=== PATIENT | male | born 1950 | race Caucasian/White ===

== ENCOUNTER 2023-10-04 09:32 | Emergency (ER) | payer OTHER ==
[2023-10-04] MEDS ORDERED: LIDOCAINE 1% 20 ML MDV ONE (09:51)
[2023-10-04] MEDS ORDERED: TDAP (DIPHTH,PERTUSS(ACELL),TET VAC) 0.5 ML VIAL IMVAC ONE (09:51)
--- NOTE | 2023-10-04 11:10 | RAD REPORT ---
EXAM DESCRIPTION: RAD - Tib Fib Left - 10/04/2023 10:56 am CLINICAL HISTORY: laceration COMPARISON: No comparisons TECHNIQUE: Left tibia and fibula, 2 views. FINDINGS: No fracture is identified. There is no dislocation or periosteal reaction noted. Small calcaneal spur. Soft tissue irregularity along the lateral aspect of the lower leg superiorly. IMPRESSION: Soft tissue irregularity as above, without underlying acute osseous abnormality.
--- NOTE | 2023-10-04 11:40 | ER ---
Nurse's Notes [facility] Name: Marshall Rae Age: 73 yrs Sex: Male : 1950 Arrival Date: 10/04/2023 Time: 09:32 Bed 13 Private MD: Diagnosis: Laceration without foreign body of lower leg Presentation: 10/03 09:48 Chief complaint: Patient states: "I was cutting a tree, the chain saw kicked and I cut rs5 my left villa". Coronavirus screen: At this time, the client does not indicate any symptoms associated with coronavirus-19. Ebola Screen: No symptoms or risks identified at this time. 09:48 Method Of Arrival: Wheelchair rs5 09:50 Complicating Factors: There are no complicating factors for this patient. rs5 09:50 Initial Sepsis Screen: Does the patient meet any 2 criteria? No. Patient's initial rs5 sepsis screen is negative. Does the patient have a suspected source of infection? No. Patient's initial sepsis screen is negative. Risk Assessment: Do you want to hurt yourself or someone else? Patient reports no desire to harm self or others. Onset of symptoms was October 04, 2023. 09:50 Acuity: MARIN 3 rs5 Historical: - Allergies: 09:49 No Known Allergies; rs5 - PMHx: 09:49 Hypertensive disorder; Atrial fibrillation; rs5 - PSHx: 09:49 left foot surgery; rs5 - Immunization history:: Adult Immunizations up to date. - Infectious Disease History:: Denies. - Social history:: Smoking status: Patient denies any tobacco usage or history of. Screenin:[address] [facility] ED Fall Risk Assessment (Adult) History of falling in the last 3 months, rs5 including since admission No falls in past 3 months (0 pts) Confusion or Disorientation No (0 pts) Intoxicated or Sedated No (0 pts) Impaired Gait Yes (1 pt) Mobility Assist Device Used No (0 pt) Altered Elimination No (0 pt) Score/Fall Risk Level 0 - 2 = Low Risk Oriented to surroundings, Maintained a safe environment. Abuse screen: Denies threats or abuse. Nutritional screening: No deficits noted. Tuberculosis screening: No symptoms or risk factors identified. Assessment: 09:40 General: Appears in no apparent distress. uncomfortable, Behavior is calm, cooperative. rs5 Pain: Complains of pain in left villa Pain currently is 2 out of 10 on a pain scale. Quality of pain is described as aching, Is continuous. Neuro: Level of Consciousness is awake, alert, obeys commands, Oriented to person, place, time, situation. Cardiovascular: Patient's skin is warm and dry. Respiratory: Airway is patent Respiratory effort is even, unlabored, Respiratory pattern is regular, symmetrical. GI: Abdomen is round non-distended, Abd is soft and non tender X 4 quads. : No signs and/or symptoms were reported regarding the genitourinary system. EENT: No signs and/or symptoms were reported regarding the EENT system. Derm: Skin is intact, Skin is pink, warm \\T\\ dry. 4-5 inch laceration noted to left villa, no active bleeding noted. pt states "I cut my leg by accident with a chainsaw". 09:40 Musculoskeletal: Range of motion: limited in left leg. rs5 09:40 Injury Description: Laceration is clean, 2.6 to 7.5 cm long, not bleeding. rs5 10:49 Reassessment: Patient and/or family updated on plan of care and expected duration. Pain rs5 level reassessed. Patient is alert, oriented x 3, equal unlabored respirations, skin warm/dry/pink. 11:28 Reassessment: No changes from previously documented assessment. rs5 11:30 Reassessment: to bedside for wound care, pt tolerated wound care well. rs5 11:40 Reassessment: Patient and/or family updated on plan of care and expected duration. Pain rs5 level reassessed. Patient is alert, oriented x 3, equal unlabored respirations, skin warm/dry/pink. to bedside for dressing, Neosporin and non-adherent dressing applied to laceration on left leg, wrapped with sonia wrap, pt tolerated dressing well. 12:00 Reassessment: No changes from previously documented assessment. rs5 Vital Signs: 09:40 BP 141 / 82; Pulse 70; Resp 17; Pulse Ox 98% on R/A; rs5 12:00 BP 135 / 79; Pulse 72; Resp 17; Pulse Ox 98% on R/A; rs5 ED Course: 09:35 Patient arrived in ED. ra3 09:37 [facility] Pitt [facility] sb4 09:37 Angelique Cassidy MD is Attending Physician. sb4 09:40 Patient has correct armband on for positive identification. Placed in gown. Bed in low rs5 position. Call light in reach. Side rails up X2. 09:45 Arm band placed on Patient placed in an exam room, on a stretcher. ll1 09:48 Michi Ventura, RN is Primary Nurse. rs5 09:50 Julius Seals DO is Attending Physician. sb4 10:57 Tib Fib Left XRAY In Process Unspecified. EDMS 11:24 Triage completed. rs5 11:28 No provider procedures requiring assistance completed. rs5 12:00 Patient did not have IV access during this emergency room visit. rs5 Administered Medications: 10:05 Drug: Boostrix Tdap IM 0.5 ml IM once; as a single dose Route: IM; Site: left deltoid; rs5 10:25 Follow up: Response: No adverse reaction rs5 11:51 Drug: Lidocaine Infiltration (1 %) 20 ml 20 ml Infiltration once; to bedside Volume: 20 sb4 ml; Route: Infiltration; 12:00 Follow up: Response: No adverse reaction rs5 Outcome: 11:40 Discharge ordered by MD. sb4 12:00 Discharged to home ambulatory, rs5 12:00 Condition: stable rs5 12:00 Discharge instructions given to patient, family, Instructed on discharge instructions, follow up and referral plans. medication usage, Demonstrated understanding of instructions, follow-up care, medications, Prescriptions given X 1, 12:06 Patient left the ED. rs5 Signatures: Dispatcher [employer] EDMS Michael Alvarado, RN RN ll1 Shea Pitt PA-C [place] sb4 Michi Ventura, RN RN rs5 Fozia Hill ra3
--- NOTE | 2023-10-04 11:40 | EDPHYS ---
Physician Documentation [facility] Name: Marshall Rae Age: 73 yrs Sex: Male : 1950 Arrival Date: 10/04/2023 Time: 09:32 Bed 13 Private MD: ED Physician Julius Seals HPI: 10/03 09:46 This 73 yrs old Male presents to ER via Unassigned with complaints of Laceration To Leg.sb4 09:46 The patient has a laceration related to: doing yard work, chain saw, occurred outdoors, sb4 and there are no complicating factors. The injury was accidental. The laceration(s) is(are) located on the left villa. Onset: The symptoms/episode began/occurred just prior to arrival. Associated signs and symptoms: The patient has no apparent associated signs or symptoms. The patient has not experienced similar symptoms in the past. The patient has not recently seen a physician. Historical: - Allergies: 09:49 No Known Allergies; rs5 - PMHx: 09:49 Hypertensive disorder; Atrial fibrillation; rs5 - PSHx: 09:49 left foot surgery; rs5 - Immunization history:: Adult Immunizations up to date. - Infectious Disease History:: Denies. - Social history:: Smoking status: Patient denies any tobacco usage or history of. ROS: 09:46 Constitutional: Negative for fever, chills, and weight loss, sb4 09:46 Skin: Positive for laceration(s), of the left villa, 09:46 All other systems are negative, Exam: 09:46 Constitutional: This is a well developed, well nourished patient who is awake, alert, sb4 and in no acute distress. Head/Face: Normocephalic, atraumatic. Eyes: Extra-ocular motions intact. Periorbital areas with no swelling, redness, or edema. 09:46 Skin: injury, laceration(s), the wound is approximately 15 cm(s), with a depth of 1 cm(s), of the left villa, that can be described as contaminated, no foreign body, irregular, with mild bleeding, Vital Signs: 09:40 BP 141 / 82; Pulse 70; Resp 17; Pulse Ox 98% on R/A; rs5 12:00 BP 135 / 79; Pulse 72; Resp 17; Pulse Ox 98% on R/A; rs5 Laceration: 11:38 Wound Repair of 15cm ( 5.9in ) subcutaneous laceration to left villa. Irregularly sb4 shaped.. Skin/tissue flap noted.. Minimal bleeding noted.. Distal neuro/vascular/tendon intact. Anesthesia: Local anesthetic administered with 15 mls of 1% lidocaine. Wound prep: Wound irrigation with saline by me, Wound explored, Copious irrigation. Skin closed with 11 4-0 Prolene using simple sutures and sterile technique. Skin closed with 12 padma Concord using staple gun. Dressed with non-adherent dressing. Patient tolerated well. MDM: 09:37 Patient medically screened. sb4 11:38 Data reviewed: vital signs, nurses notes, and as a result, I will discharge patient. sb4 Counseling: I had a detailed discussion with the patient and/or guardian regarding the historical points, exam findings, and any diagnostic results supporting the discharge/admit diagnosis, radiology results, the need for outpatient follow up, for suture and staple removal in 10 days, to return to the emergency department if symptoms worsen or persist or if there are any questions or concerns that arise at home. 10/03 09:46 Order name: Tib Fib Left XRAY; Complete Time: 11:38 sb4 10/03 09:46 Order name: Wound Care; Complete Time: 10:06 sb4 10/03 11:38 Order name: Wound dressing; Complete Time: 12:14 sb4 Administered Medications: 10:05 Drug: Boostrix Tdap IM 0.5 ml IM once; as a single dose Route: IM; Site: left deltoid; rs5 10:25 Follow up: Response: No adverse reaction rs5 11:51 Drug: Lidocaine Infiltration (1 %) 20 ml 20 ml Infiltration once; to bedside Volume: 20 sb4 ml; Route: Infiltration; 12:00 Follow up: Response: No adverse reaction rs5 Disposition: 10:59 I reviewed the patient's care provided by Advanced Practice Provider \T\ agree w/ the ms3 diagnosis \T\ care plan. I personally saw the pt \T\ performed a substantive portion of the visit, incldng all aspects of the (History/Exam/Medical Decision Making). PA/DIVER HELPER's history reviewed, patient interviewed, and examined. HPI: 73-year-old male presents to the emergency department for left leg laceration status post chainsaw mishap. Patient states that she was shifting when he went to get out of the way cutting himself with his chainsaw My personal exam of patient reveals: On exam patient with laceration to left lateral leg into the adipose tissue with muscle fascia visible. Patient is alert and oriented x 4, no apparent distress, nontoxic-appearing. Heart rate and rhythm are regular without murmurs rubs or gallops, lungs are clear to auscultation bilaterally I agree with assessment and care plan and confirm the diagnosis (es) above. Disposition Summary: 10/04/23 11:40 Discharge Ordered Notes: Location: Home sb4 Problem: new sb4 Symptoms: have improved sb4 Condition: Stable sb4 Diagnosis - Laceration without foreign body of lower leg sb4 Followup: sb4 - With: Private Physician - When: 7 - 10 days - Reason: Staple/Suture removal Discharge Instructions: - Discharge Summary Sheet sb4 - Sutures, Concord, or Adhesive Wound Closure, [id number] sb4 Forms: - Antibiotic Education sb4 - Patient Portal Instructions sb4 - Leadership Thank You Letter sb4 Prescriptions: - Cephalexin 500 mg Oral Capsule - take 1 capsule ORAL route every 8 hours for 10 days; 30 capsule; Refills: 0, sb4 Product Selection Permitted Signatures: Dispatcher [employer] Michael Cee, RN RN ll1 Julius Seals DO DO ms3 Shea Pitt PA-C PA-C sb4 Michi Ventura RN RN rs5
[2023-10-04 12:17] VITALS: BP 141/82; O2SAT 98
--- OUTSIDE RECORDS SUMMARY | 2023-10-05 13:46 | XMS REPORT | Continuity of Care Document ---
Author Name Unknown Address [address] [facility] [place] [address] [facility] Address [address] [facility] [address] [place] [address] Care Team Providers Care Shingle Carrier Name Role Phone DANIEL CORNELIUS Attending Clinician Unavailable Olegario Butler Attending Clinician UnavailGERSON Monroe Attending Clinician Unavail able LAB90 Attending Clinician Unavailable Leroy ABURTO, Gabriela Bell Attending Clinician [phone] [id number] Attending Clinician Unavailable Daniel Cornelius MD Attending Clinician [phone] Olegario Butler Admitting Clinician Unavailabl e KNOW, DOES_NOT Admitting Clinician Unavailable Payers Payer Name Policy Type Policy Number Effective Date Expirati on Date Source BRAYAN SHEN PPO 5 [id number] 2021 00:00:00 Problems Condition Name Condition Details Condition Category Status Onset Date Resolution Date Last Treatment Date Treating Clinician Comments Source Essential hypertensi on Essential hypertensi on Disease Active 10-22 00:00: 00 Overview: Formattin g of this note might be different from the original. On sonia-I and low salt dietLast Assessmen t & Plan: Formattin g of this note might be different from the original. Iza Garcia Elevated PSA Elevated PSA Disease Active 10-22 00:00: 00 Ana Garcia History of corneal ulcer History of corneal ulcer Disease Active 10-22 00:00: 00 Ana Garcia Allergies, Adverse Reactions, Alerts Allergy Name Allergy Type Status Severity Reaction(s) Onset Date Inactive Date Treating Clinician Comments Source No Known Allergie s DA Active U 6-12 00:00: 00 [facility] Social History Social Habit Start Date Stop Date Quantity Comments Source Exposure to SARS-CoV-2 (event) Not sure Ana gutierrez Sex Ass[birth year] At [birth year] 00[birth year] Ana Garcia Smoking Status Start Date Stop Date Source Never smoked tobacco Ana Garcia Medications Ordered Medication Name Filled Medication Name Start Date Stop Date Current Medication? Ordering Clinician Indication Dosage Frequency Signature (SIG) Comments Components Source Lisinopril 10 MG oral Tablet 10-22 00:00: 00 Yes [id number] 10mg Take 1 tablet (10 mg total) by mouth daily Ana Garcia Lisinopril 10 MG oral Tablet 06-13 00:00: 00 10-22 00:00 :00 No 10mg Take 1 tablet (10 mg total) by mouth daily Ana Garcia Vital Signs Vital Name Observation Time Observation Value Comments S nancy Systolic blood pressure 2020-10-22 12:57:00 124 mm[Hg] Ana Garcia Diastolic blood pressure 2020-10-22 12:57:00 68 mm[Hg] Ana wilson Heart rate 2020-10-22 12:57:00 74 /min Tmi Garcia Body temperature 2020-10-22 12:57:00 36.67 Monique Ana Garcia Respiratory rate 2020-10-22 12:57:00 16 /min Ana Garcia Body height 2020-10-22 12:57:00 182.9 cm Luann Garcia Body weight 2020-10-22 12:57:00 81.738 kg Luann Garcia BMI 2020-10-22 12:57:00 24.44 kg/m2 Luann Garcia Procedures Procedure Date / Time Performed Performing Clinicia n Source URINALYSIS, ROUTINE 2020-10-22 15:14:00 Aga, Daniel Garcia CBC WITH DIFFERENTIAL/PLATELET 2020-10-22 13:47:00 Aga, Daniel Garcia MAGNESIUM, SERUM 2020-10-22 13:47:00 Aga, Daniel Garcia LIPID PANEL 2020-10-22 13:47:00 Aga, Daniel Garcia BASIC METABOLIC PANEL (8) 2020-10-22 13:47:00 Aga, Demarco Garcia ECG- ADULT 2020-10-22 13:27:46 Aga, Daniel Garcia Encounters Start Date/Time End Date/Time Encounter Type Admission Type Attending [facility] Care Facility Care Department Encounter ID Source 2022-09-12 00:00:00 2022-09-12 00:00:00 Outpatient ADRYANDEMARCODANIELSUKH CYR [id number] Ana Garcia 2022-07-28 11:51:00 2022-07-29 11:36:00 Inpatient Olegario Landon [facility]ACL INTE [id number] [facility] 2022-07-27 08:45:00 2022-07-27 08:45:00 Outpatient Olegario Landon HCAWU SURG [id number] [facility] 2021-12-29 00:00:00 2021-12-29 00:00:00 Outpatient GERSON SINGH [id number] Ana Garcia 2021-09-18 09:45:00 2021-09-18 09:45:00 Outpatient LAB90 ANA CYR [id number] Ana ybjamil 2021-09-18 08:45:00 2021-09-18 09:30:00 Office Visit Gabriela Harper [place] [id number] Ana brenda 2020-12-09 14:15:00 2020-12-09 14:15:00 Outpatient TRED45 ANA CYR [id number] Ana Garcia 2020-12-09 13:00:00 2020-12-09 13:00:00 Outpatient ANA CYR [id number] Ana Garcia 2020-10-29 00:00:00 2020-10-29 00:00:00 Outpatient DANIEL CORNELIUS [id number] Ana Garcia 2020-10-22 08:45:00 2020-10-22 08:45:00 Outpatient LAB90 ANA CYR [id number] Ana Garcia 2020-10-22 07:57:06 2020-10-22 08:12:06 Office Visit Daniel Cornelius [id number] Ana Garcia 2020-10-22 00:00:00 2020-10-22 00:00:00 Outpatient DANIEL CORNELIUS [id number] Ana Garcia Results Test Description Test Time Test Comments Results Result Co mments Source RBC [id number] 04:38:00* Test Item Value Reference Range Interpretation Comme nts ANISOCYTOSIS (test code = ANISO) POIKILOCYTOSIS (test code = POIK) 2+ BASIC METABOLIC [id number] 04:12:00* Test Item Value Reference Range Interpretation Comme nts SODIUM (test code = NA) 138 mEq/L 134-147 N POTASSIUM (test code = K) 4.7 mEq/L 3.4-5.0 N CHLORIDE (test code = CL) 111 mEq/L 100-108 H CARBON DIOXIDE (test code = CO2) 23 mEq/l 21-33 N ANION GAP (test code = GAP) 9 0-20 N GLUCOSE (test code = GLU) 142 mg/dL 70-110 H BLOOD UREA NITROGEN (test code = BUN) 13 mg/dL 7-18 N GLOMERULAR FILTRATION RATE (test code = GFR) 72.2 70-80 N The Glomerular Filtration Rate is a calculated parameterbased on serum Creatinine, patient age and sex. GFR valuesless than 60 mL/min/1.73 square meters are indicative ofChronic Kidney Disease. Values less than 15 mL/min/1.73square meters indicate Kidney failure. The calculation forGFR is based on the CKD-EPI (202) calculation. This formulais race indifferent and is the recommended formula for GFRby the National Kidney Foundation for Adults.The GFR will not calculate if the sex is unknown or if thepatient's age is <18 years. CREATININE (test code = CREAT) 1.1 mg/dL 0.6-1.3 N CALCIUM (test code = CA) 8.5 mg/dL 8.0-10.5 N [id number] 04:12:00* Test Item Value Reference Range Interpretation Comme nts PHOSPHOROUS (test code = PHOS) 3.5 MG/DL 2.5-4.9 N [id number] 04:12:00* Test Item Value Reference Range Interpretation Comme nts MAGNESIUM (test code = MAG) 2.12 mg/dL 1.80-2.40 CALCIUM [id number] 04:12:00* Test Item Value Reference Range Interpretation Comme nts CALCIUM IONIZED (test code = ANKUR) 1.13 MMOL/L 1.09-1.30 N BASIC METABOLIC [id number] 21:31:00* Test Item Value Reference Range Interpretation Comme nts SODIUM (test code = NA) 139 mEq/L 134-147 N POTASSIUM (test code = K) 4.3 mEq/L 3.4-5.0 N CHLORIDE (test code = CL) 112 mEq/L 100-108 H CARBON DIOXIDE (test code = CO2) 19 mEq/l 21-33 L ANION GAP (test code = GAP) 13 0-20 N GLUCOSE (test code = GLU) 163 mg/dL 70-110 H BLOOD UREA NITROGEN (test code = BUN) 12 mg/dL 7-18 N GLOMERULAR FILTRATION RATE (test code = GFR) 65.1 70-80 L The Glomerular Filtration Rate is a calculated parameterbased on serum Creatinine, patient age and sex. GFR valuesless than 60 mL/min/1.73 square meters are indicative ofChronic Kidney Disease. Values less than 15 mL/min/1.73square meters indicate Kidney failure. The calculation forGFR is based on the CKD-EPI (2021) calculation. This formulais race indifferent and is the recommended formula for GFRby the National Kidney Foundation for Adults.The GFR will not calculate if the sex is unknown or if thepatient's age is <18 years. CREATININE (test code = CREAT) 1.2 mg/dL 0.6-1.3 N CALCIUM (test code = CA) 8.1 mg/dL 8.0-10.5 N [id number] 21:31:00* Test Item Value Reference Range Interpretation Comme nts MAGNESIUM (test code = MAG) 1.65 mg/dL 1.80-2.40 L CALCIUM [id number] 21:31:00* Test Item Value Reference Range Interpretation Comme nts CALCIUM IONIZED (test code = ANKUR) 1.09 MMOL/L 1.09-1.30 N CBC W/AUTO [id number] 21:17:00* Test Item Value Reference Range Interpretation Comme nts WHITE BLOOD CELL (test code = WBC) 16.8 x10 3/uL 4.5-11.0 H RED BLOOD CELL (test code = RBC) 5.81 x10 6/uL 4.00-5.60 H HEMOGLOBIN (test code = HGB) 17.7 g/dL 12.5-16.9 H HEMATOCRIT (test code = HCT) 50.7 % 37.5-50.7 N MEAN CELL VOLUME (test code = MCV) 87.3 fL 81.0-99.0 N MEAN CELL HGB (test code = MCH) 30.5 pg 27.0-33.0 N MEAN CELL HGB CONCETRATION (test code = MCHC) 34.9 g/dL 33.0-37.0 N RED CELL DISTRIBUTION WIDTH CV (test code = RDW) 13.2 % 11.5-14.5 N RED CELL DISTRIBUTION WIDTH SD (test code = RDW-SD) 42.3 fL 37.0-54.0 N PLATELET COUNT (test code = PLT) 204 x10 3/uL 150-400 N MEAN PLATELET VOLUME (test code = MPV) 10.1 fL 7.0-9.0 H NEUTROPHIL % (test code = NT%) 87.9 % 56.0-77.0 H IMMATURE GRANULOCYTE % (test code = IG%) 0.2 % 0.0-2.0 N LYMPHOCYTE % (test code = LY%) 8.0 % 14.0-32.0 L MONOCYTE % (test code = MO%) 3.7 % 4.8-9.0 L EOSINOPHIL % (test code = EO%) 0.0 % 0.3-3.7 L BASOPHIL % (test code = BA%) 0.2 % 0.0-2.0 N NUCLEATED RBC % (test code = NRBC%) 0.0 % 0-0 N NEUTROPHIL # (test code = NT#) 14.79 x10 3/uL 2.0-7.6 H IMMATURE GRANULOCYTE # (test code = IG#) 0.04 x10 3/uL 0.00-0.03 H LYMPHOCYTE # (test code = LY#) 1.34 x10 3/uL 1.0-3.8 N MONOCYTE # (test code = MO#) 0.63 x10 3/uL 0.1-0.8 N EOSINOPHIL # (test code = EO#) 0.00 x10 3/uL 0.0-0.2 N BASOPHIL # (test code = BA#) 0.03 x10 3/uL 0.0-0.2 N NUCLEATED RBC # (test code = NRBC#) 0.00 x10 3/uL 0.0-0.1 N MANUAL DIFF REQUIRED (test code = MDIFF) NO [id number] 17:06:00* Test Item Value Reference Range Interpretation Comme nts ACT-ISTAT (test code = ACTI) 293 SEC 74-137 H Performed by cer tified welding machine operator gas metal arc at [facility] [id number] 16:47:00* Test Item Value Reference Range Interpretation Comme nts ACT-ISTAT (test code = ACTI) 293 SEC 74-137 H Performed by cer tified welding machine operator gas metal arc at [facility] [id number] 16:25:00* Test Item Value Reference Range Interpretation Comme nts ACT-ISTAT (test code = ACTI) 311 SEC 74-137 H Performed by cer tified welding machine operator gas metal arc at [facility] [id number] 16:01:00* Test Item Value Reference Range Interpretation Comme nts ACT-ISTAT (test code = ACTI) 323 SEC 74-137 H Performed by cer tified welding machine operator gas metal arc at [facility] [id number] 15:40:00* Test Item Value Reference Range Interpretation Comme nts ACT-ISTAT (test code = ACTI) 342 SEC 74-137 H Performed by cer tified welding machine operator gas metal arc at [facility] [id number] 15:13:00* Test Item Value Reference Range Interpretation Comme nts ACT-ISTAT (test code = ACTI) 209 SEC 74-137 H Performed by cer tified welding machine operator gas metal arc at [facility] BASIC METABOLIC [id number] 10:55:00* Test Item Value Reference Range Interpretation Comme nts SODIUM (test code = NA) 136 MMOL/L 137-145 L POTASSIUM (test code = K) 4.4 MMOL/L 3.5-5.1 N CHLORIDE (test code = CL) 105 MMOL/L 98-107 N CARBON DIOXIDE (test code = CO2) 23 MMOL/L 22-30 N GLUCOSE (test code = GLU) 99 MG/DL 74-106 N BLOOD UREA NITROGEN (test code = BUN) 17 MG/DL 9-20 N GLOMERULAR FILTRATION RATE (test code = GFR) > 60 The Glomerular Filtration Rate is a calculated parameterbased on serum Creatinine, patient age and sex. GFR valuesless than 60 mL/min/1.73 square meters are indicative ofChronic Kidney Disease. Values less than 15 mL/min/1.73square meters indicate Kidney failure. The calculation forGFR is based on the CKD-EPI (2020) calculation. This formulais race indifferent and is the recommended formula for GFRby the National Kidney Foundation for Adults.The GFR will not calculate if the sex is unknown or if thepatient's age is <18 years. CREATININE (test code = CREAT) 1.00 MG/DL 0.66-1.25 N CALCIUM (test code = CA) 9.5 MG/DL 8.4-10.2 N [id number] 10:55:00* Test Item Value Reference Range Interpretation Comme [facility] MAGNESIUM (test code = MAG) 2.1 MG/DL 1.6-2.3 N PROTHROMBIN [id number] 10:49:00* Test Item Value Reference Range Interpretation Comme [facility] PROTHROMBIN TIME PATIENT (test code = PTP) 11.3 SECONDS 10.1-12.6 N INTERNATIONAL NORMAL RATIO (test code = INR) 1.0 0.86-1.14 N The INR is to be used only for monitoring oral anticoagulanttherap y. INDICATION INR VALUE -------1. Prophylaxis, deep venous thrombosis, including high risk surgery. 2.0 - 3.0 2. Prophylaxis, deep venous thrombosis, hip surgery, treatment for deep venous thrombosis or pulmonary prevention of systemic embolism in patients with valvular heart disease, atrial fibrillation, tissue heart valve, or acute myocardial infarction. 2.0 - 3.0 3. Mechanical prosthesis heart valves, recurrent systemic embolism. 3.0 - 4.5 PTT [id number] 10:49:00* Test Item Value Reference Range Interpretation Comme nts PTT ACTIVATED (test code = APTT) 34.9 SECONDS 27.2-37.9 N CBC W/AUTO [id number] 10:40:00* Test Item Value Reference Range Interpretation Comme nts WHITE BLOOD CELL (test code = WBC) 8.5 K/MM3 3.8-9.8 N RED BLOOD CELL (test code = RBC) 6.03 M/MM3 3.95-5.67 H HEMOGLOBIN (test code = HGB) 18.6 G/DL 12.4-16.7 CALLED TO LENI Langley & READBACK ON 07/27/22 AT 1037 BY Shree Ortiz HEMATOCRIT (test code = HCT) 51.5 % 35.9-49.5 H MEAN CELL VOLUME (test code = MCV) 85 fL 81.7-96.1 N MEAN CELL HGB (test code = MCH) 30.8 pg 27.6-33.2 N MEAN CELL HGB CONCETRATION (test code = MCHC) 36.1 % 32.9-35.5 H RED CELL DISTRIBUTION WIDTH (test code = RDW) 13.2 % 12.1-15.2 N PLATELET COUNT (test code = PLT) 197 K/MM3 129-368 N MEAN PLATELET VOLUME (test code = MPV) 9.6 fl 7.4-10.4 N NEUTROPHIL % (test code = NT%) 63.1 % 43-75 N IMMATURE GRANULOCYTE % (test code = IG%) 0.2 % 0.0-2.0 N LYMPHOCYTE % (test code = LY%) 27.0 % 14-44 N MONOCYTE % (test code = MO%) 8.0 % 4-13 N EOSINOPHIL % (test code = EO%) 1.2 % 0-6 N BASOPHIL % (test code = BA%) 0.5 % 0-2 N NUCLEATED RBC % (test code = NRBC%) 0.0 % 0-1.0 N NEUTROPHIL # (test code = NT#) 5.33 K/mm3 2.0-7.6 N IMMATURE GRANULOCYTE # (test code = IG#) 0.02 x10 3/uL 0-0.03 N LYMPHOCYTE # (test code = LY#) 2.28 K/mm3 1.0-3.8 N MONOCYTE # (test code = MO#) 0.68 K/mm3 0.1-0.8 N EOSINOPHIL # (test code = EO#) 0.10 K/mm3 0.0-0.2 N BASOPHIL # (test code = BA#) 0.04 K/mm3 0.0-0.2 N NUCLEATED RBC # (test code = NRBC#) 0.00 K/mm3 0.0-0.1 N LIPID [id number] 15:11:00* Test Item Value Reference Range Interpretation Comme nts CHOLESTEROL, TOTAL (test code = 2093-3) 254 mg/dL 100-199 H TRIGLYCERIDES (test code = 2571-8) 139 mg/dL 0-149 HDL CHOLESTEROL (test code = 2085-9) 70 mg/dL >39 VLDL CHOLESTEROL BERTO (test code = 78801-0) 25 mg/dL 5-40 LDL CHOL CALC (NIH) (test code = 28261-8) 159 mg/dL 0-99 H PAULIE (test code = PAULIE) [facility] results reported in Eastern Time. [facility] Clinical Information:[facility] Source of Specimen:Blood, venous*Venipunc Lab Interpretation (test code = 29580-8) Abnormal Ana SeyboldCBC WITH DIFFERENTIAL/[id number] 15:11:00* Test Item Value Reference Range Interpretation Comme nts WHITE BLOOD CELL (WBC) COUNT (test code = 6690-2) See_Comment [Automated message] The system which generated this result transmitted reference range: 3.4 - 10.8 x10E3/uL. The reference range was not used to interpret this result as normal/abnormal. RED BLOOD CELL (RBC) COUNT (test code = 789-8) See_Comment [Automated message] The system which generated this result transmitted reference range: 4.14 - 5.80 x10E6/uL. The reference range was not used to interpret this result as normal/abnormal. HEMOGLOBIN (test code = 718-7) 17.3 g/dL 13.0-17.7 HEMATOCRIT (test code = 4544-3) 53.5 % 37.5-51.0 H MCV (test code = 787-2) 93 fL 79-97 MCH (test code = 785-6) 30.2 pg 26.6-33.0 MCHC (test code = 786-4) 32.3 g/dL 31.5-35.7 RDW (test code = 788-0) 13.0 % 11.6-15.4 PLATELETS (test code = 777-3) See_Comment [Automated message] The system which generated this result transmitted reference range: 150 - 450 x10E3/uL. The reference range was not used to interpret this result as normal/abnormal. NEUTROPHILS (test code = 770-8) 62 % Not Estab. LYMPHS (test code = 736-9) 27 % Not Estab. MONOCYTES (test code = 5905-5) 9 % Not Estab. EOS (test code = 713-8) 1 % Not Estab. BASOS (test code = 706-2) 1 % Not Estab. NEUTROPHILS (ABSOLUTE) (test code = 751-8) See_Comment [Automated message] The system which generated this result transmitted reference range: 1.4 - 7.0 x10E3/uL. The reference range was not used to interpret this result as normal/abnormal. LYMPHS (ABSOLUTE) (test code = 731-0) See_Comment [Automated message] The system which generated this result transmitted reference range: 0.7 - 3.1 x10E3/uL. The reference range was not used to interpret this result as normal/abnormal. MONOCYTES(ABSOLUTE) (test code = 742-7) See_Comment [Automated message] The system which generated this result transmitted reference range: 0.1 - 0.9 x10E3/uL. The reference range was not used to interpret this result as normal/abnormal. EOS (ABSOLUTE) (test code = 711-2) See_Comment [Automated message] The system which generated this result transmitted reference range: 0.0 - 0.4 x10E3/uL. The reference range was not used to interpret this result as normal/abnormal. BASO (ABSOLUTE) (test code = 704-7) See_Comment [Automated message] The system which generated this result transmitted reference range: 0.0 - 0.2 x10E3/uL. The reference range was not used to interpret this result as normal/abnormal. IMMATURE GRANULOCYTES (test code = 12116-5) 0 % Not Estab. IMMATURE GRANS (ABS) (test code = 21449-6) See_Comment [Automated message] The system which generated this result transmitted reference range: 0.0 - 0.1 x10E3/uL. The reference range was not used to interpret this result as normal/abnormal. PAULIE (test code = PAULIE) [facility] results reported in Eastern Time. [facility] Clinical Information:SRC :Blood, venous*Venipunc ture ? [facility] Source of Specimen:Blood, venous*Venipunc Lab Interpretation (test code = 71936-1) Abnormal [facility] METABOLIC PANEL (8)2020-10-23 14:11:00* Test Item Value Reference Range Interpretation Comme nts GLUCOSE, SERUM (test code = 2345-7) 101 mg/dL 65-99 H BUN (test code = 3094-0) 19 mg/dL 8-27 CREATININE, SERUM (test code = 2160-0) 0.89 mg/dL 0.76-1.27 EGFR IF NONAFRICN AM (test code = 57863-2) 87 mL/min/1.73 >59 EGFR IF AFRICN AM (test code = 46413-2) 101 mL/min/1.73 >59 [facility] currently reports eGFR in compliance with the current ?recommendations of the National Kidney Foundation. [facility] will ?update reporting as new guidelines are published from the NKF-ASN ?Task force. BUN/CREATININE RATIO (test code = 3097-3) 10-24 SODIUM, SERUM (test code = 2951-2) 142 mmol/L 134-144 POTASSIUM, SERUM (test code = 2823-3) 5.0 mmol/L 3.5-5.2 CHLORIDE, SERUM (test code = 2075-0) 104 mmol/L 96-106 CARBON DIOXIDE, TOTAL (test code = 2027-) 21 mmol/L 20-29 CALCIUM, SERUM (test code = 07811-3) 9.8 mg/dL 8.6-10.2 PAULIE (test code = PAULIE) [facility] results reported in Eastern Time. [facility] Clinical Information:SRC :Blood, venous*Venipunc ture ? [facility] Source of Specimen:Blood, venous*Venipunc Lab Interpretation (test code = 63952-3) Abnormal Ana SeyboldMAGNESIUM, [id number] 14:11:00* Test Item Value Reference Range Interpretation Comme nts MAGNESIUM, SERUM (test code = 95120-2) 2.1 mg/dL 1.6-2.3 PAULIE (test code = PAULIE) [facility] results re ported in Eastern Time. [facility] Clinical Information:[facility] Source of Specimen:Blood, venous*Venipunc Ana BearoldURINALYSIS, [id number] 13:14:00* Test Item Value Reference Range Interpretation Comme nts SPECIFIC GRAVITY (test code = 2965-2) 1.005-1.030 PH (test code = 5803-2) 5.0-7.5 URINE-COLOR (test code = 5778-6) Yellow Yellow APPEARANCE (test code = 5767-9) Clear Clear WBC ESTERASE (test code = 5799-2) Negative Negative PROTEIN (test code = 27573-5) Negative Negative/Trace GLUCOSE (test code = 2349-9) Negative Negative KETONES (test code = 2514-8) Negative Negative OCCULT BLOOD (test code = 5794-3) Negative Negative BILIRUBIN (test code = 5770-3) Negative Negative UROBILINOGEN,SEMI-Q N (test code = 95814-0) 0.2 mg/dL 0.2-1.0 NITRITE, URINE (test code = 5802-4) Negative Negative MICROSCOPIC EXAMINATION (test code = 36782-8) Microscopic not indicated and not performed. PAULIE (test code = PAULIE) [facility] results reported in Eastern Time. [facility] Clinical Information:SRC: Urine*Urine ?LCA Source of Specimen:Urine*U rine Ana BearoldECG- [id number] 18:08:31* Test Item Value Reference Range Interpretation Comme nts VENTRICULAR RATE (test code = 43804) BPM ATRIAL RATE (test code = 50332) BPM P-R INTERVAL (test code = 12552) 174 ms QRS DURATION (test code = 19386) 92 ms Q-T INTERVAL (test code = 93514) 432 ms QTC CALCULATION(BEZE (test code = 00506) 442 ms CALCULATED P AXIS (test code = 57629) degrees CALCULATED R AXIS (test code = 41624) degrees CALCULATED T AXIS (test code = 17608) degrees DIAGNOSIS (test code = 25678) Normal sinus rhythmNormal ECGNo previous ECGs availableConfirmed by LEONEL FONTANEZ ([id number]) on 10/22/2020 1:08:29 PM Ana Garcia Notes Date/Time Note Provider Source 2022-07-29 19:14:00 [id number] [place] [address] PATIENT NAME: JAE GUERRIER ADMIT DATE: 07/28/22 ACCOUNT NO: [id number] ROOM NO: [id number] AGE: 71 REPORT TYPE: OPERATIVE REPORT SEX: M ADMITTING PHYSICIAN:Olegario Butler MD ATTENDING PHYSICIAN:Olegario Butler MD OPERATION DATE: 07/28/2022 PROCEDURES: 1. Comprehensive electrophysiology study with atrial fibrillation ablation/pulmonary vein isolation. 2. Intracardiac echocardiography. PREOPERATIVE DIAGNOSIS: Persistent atrial fibrillation. POSTOPERATIVE DIAGNOSIS: Persistent atrial fibrillation. SURGEON: Olegario Butler MD ANESTHESIA: General endotracheal anesthesia. FRONTLOAD DRIVER: None. PROCEDURE IN DETAIL: After informed consent was obtained explaining to the patient risks, benefits and alternatives, the patient was brought to the cardiac catheterization lab in the fasting postabsorptive state. He was prepped and draped in sterile fashion. Local anesthesia was applied over both femoral veins with 1% lidocaine. Using modified Seldinger technique and ultrasound guidance as well as a micropuncture kit, a standard 8-Niuean sheath was placed in the right femoral vein. Two 8-Niuean sheaths and a 23 9-Niuean sheaths were placed in the left femoral vein. Sheaths were aspirated and flushed and connected to heparinized saline infusion. Prior to the final placement of the 8-Niuean sheath in the right femoral vein, 2 Perclose sutures were placed in a preclosed fashion. An intracardiac echocardiography catheter was advanced via the 9-Niuean sheath and placed in the right atrium. Intracardiac echocardiography was performed to map the left atrium and interatrial septum. A 5-Niuean quadripolar Cournand catheter was advanced via an 8-Niuean sheath and placed in the right ventricle. A decapolar catheter was advanced via the remaining 8-Niuean sheath and placed in the coronary sinus. A VersaCross wire was advanced through the 8-Niuean sheath in the right atrium. The 8-Niuean sheath was exchanged for the VersaCross sheath, which was manipulated into the posterior septal region on the posterior septal fossa. After appropriate placement, RF energy was applied to the wire and a transseptal puncture was performed. The wire was advanced into the left atrium. The sheath was advanced to cross the septum and was removed. Progressive dilatation of the right femoral venous access site was performed with short 12-Niuean and 14-Niuean dilator. The Kid[employer]mittronic FlexCath sheath was then prepped and advanced over the wire into the left atrium. The dilator and wire were removed. The sheath was aspirated and flushed and connected to heparinized saline infusion. An Lefty PATIENT NAME: JAE GUERRIER catheter was then prepped and advanced through the Medtronic sheath in the left atrium. A 3-dimensional map was created of the left atrium and veins. The Octaray catheter was removed and the balloon was prepped. After adequate heparinization, the balloon was advanced over the wire. The Achieve wire was placed into the veins sequentially. After appropriate placement of the wire, sequential isolation of the pulmonary vein was performed starting with the left superior, attempted isolation on the left inferior, then isolation of the right inferior and right superior pulmonary veins. The left inferior pulmonary vein could not be completely isolated due to proximity to the esophagus and a rapid decrease in the esophageal temperature probe. At the end of the procedure, the patient was cardioverted. A sinus rhythm was restored, transiently and prior to the final freeze the patient was cardioverted and reverted back to atrial fibrillation. The patient was started on amiodarone drip and after the final cryotherapy was applied, another cardioversion was performed, which resulted in a sinus rhythm. A post-procedure map revealed isolation of the right superior, right inferior, and left superior pulmonary veins. [TIME: 06:02] inferior pulmonary vein was not isolated. The patient tolerated the procedure well with no complications. ABLATION DATA: Left superior pulmonary vein; Freeze #1: -41 degrees C. Time to effect -51 degrees C at 79 seconds, temperature nica -54 degrees C. Freeze duration 180 seconds, esophageal temperature nica 34.5 degrees C. Left superior pulmonary vein, temperature at 30 seconds, -38 degrees C. Time to effect -51 degrees C. at 101 seconds, temperature nica -53 degrees C freeze duration 180 seconds, and esophageal temperature nica 33.6 degrees C. Freeze #3: -31 degrees at 30 seconds, temperature nica -41 degrees C, freeze duration 180 seconds, esophageal temperature nica 33.1 degrees C. Left inferior pulmonary vein, freeze #1 -33 degrees C at 30 seconds, temperature nica -39 degrees C. freeze duration 86 seconds. Esophageal temperature nica less than 30, greater than 25 degrees C. Freeze #2: Temperature 30 seconds -32 degrees C, temperature nica -37 degrees C, freeze duration 136 seconds, and esophageal temperature nica less than 30 degrees C and greater than 25 degrees C. Freeze #3: Temperature at 30 seconds-30 degrees C. temperature nica -41 degrees C, freeze duration 66 second, and esophageal temperature nica 26.7 degrees C. Right inferior pulmonary vein, -37 degrees at 30 seconds. Temperature nica -55 degrees centigrade. Freeze duration 180 seconds, esophageal temperature nica 34.6 degrees C. Time to zero 14 seconds. Right superior pulmonary vein, -38 degrees 30 seconds, time to effect -42 degrees C at 36 seconds, temperature nica -55 degrees C, freeze duration 180 seconds, esophageal temperature nica at 34.7 degrees C and time to zero 12 seconds. CONCLUSION: 1. Successful isolation of right superior, right inferior, and left superior pulmonary veins. 2. Unable to isolate left inferior pulmonary vein secondary to esophageal proximity and temperature. PATIENT NAME: JAE GUERRIER ESTIMATED BLOOD LOSS: 15 mL. COMPLICATIONS: No complications. Dictated By: Olegario Butler MD Date Dictated: 07/29/2022 19:14:15 Date Transcribed: 07/29/2022 20:14:43 GSP/SVR Receipt ID: [id number] Authenticated by Olegario Butler MD On 07/30/2022 06:55:11 PM at 0655 PATIENT NAME: JAE GUERRIER [facility] 2022-07-29 09:57:00 [facility] ([facility]) Discharge Summary REPORT#:[id number] REPORT STATUS: Signed DATE:07/29/22 TIME: 09 PATIENT: JAE GUERRIER UNIT #: [id number] ROOM/BED: 2201 : 51 AGE: 71 SEX: M ATTEND: Olegario Butler MD ADM AUTHOR: Mohan Pascal * ALL edits or amendments must be made on the electronic/computer document * PCP PCP Discharge to: home General Information Discharge date: 07/29/22 Discharge diagnosis: AFIB Hospital course: -s/p PVI ablation per -tele, Afib, controlled, 80s-90s -monitored overnight -hemodynamically stable -B groin soft; no hematoma -resume AC xarelto -d/c home; outpt f/u, , 2 weeks Med Rec PCP PCP: PCP: Olegario Butler MD Med Rec Discharge meds: Continue taking these medications: LISINOPRIL (ZESTRIL) 20 MG TAB 20 MILLIGRAM ORAL DAILY. RIVAROXABAN (XARELTO) 20 MG TAB 20 MILLIGRAM ORAL DAILY. SOTALOL (BETAPACE) 80 MG TAB 80 MILLIGRAM ORAL TWICE DAILY. Objective VS/I O Last Documented: Result Date Time Pulse Ox 95 07/29 0600 B/P 121/59 07/29 0600 B/P Mean 84 07/29 0600 Pulse 77 07/29 0600 Resp 17 07/29 0600 O2 Delivery Room air 07/29 0400 Temp 36.9 07/29 0400 24 hour I O ending at 0700: 07/29 0700 07/28 1900 Intake Total 430.00 Output Total 825 Balance -395.00 Intake, IV 430.00 Output, Emesis Output, Urine 825 Patient 85.8 kg 81.818 kg Weight Weight Bed scale Stated/Reported Measurement Method PATIENT WEIGHT: Weight (lb): 189 Weight (oz): 2.51 Weight (kg): 85.800 General appearance: alert, awake, oriented Cardiovascular: irregular rhythm Respiratory: clear to auscultation, no distress GI: soft, non-tender Extremities: moves all Neuro/PANEL MACHINE TENDER: alert, oriented X 3 Skin: dry Wound/incision: Location: B groin soft; no hematoma Results Findings/Data: Laboratory Tests: 07/29 07/28 07/28 07/28 07/28 0333 2104 1656 1641 1619 Chemistry Sodium (134 - 147 mEq/L) 138 139 Potassium (3.4 - 5.0 mEq/L) 4.7 4.3 Chloride (100 - 108 mEq/L) 111 H 112 H Carbon Dioxide (21 - 33 mEq/l) 23 19 L Anion Gap (0 - 20) 9 13 BUN (7 - 18 mg/dL) 13 12 Creatinine (0.6 - 1.3 mg/dL) 1.1 1.2 Glomerular Filtr Rate (70 - 80) 72.2 65.1 L Glucose (70 - 110 mg/dL) 142 H 163 H Calcium (8.0 - 10.5 mg/dL) 8.5 8.1 Ionized Calcium Fili (1.09 - 1.30 1.13 1.09 MMOL/L) Phosphorus (2.5 - 4.9 MG/DL) 3.5 Magnesium (1.80 - 2.40 mg/dL) 2.12 1.65 L Coagulation Activated Coag Time (74 - 137 SEC) 293 H 293 H 311 H Hematology WBC (4.5 - 11.0 x10 3/uL) 11.8 H 16.8 H RBC (4.00 - 5.60 x10 6/uL) 5.30 5.81 H Hgb (12.5 - 16.9 g/dL) 16.7 17.7 H Hct (37.5 - 50.7 %) 46.0 50.7 MCV (81.0 - 99.0 fL) 86.8 87.3 MCH (27.0 - 33.0 pg) 31.5 30.5 MCHC (33.0 - 37.0 g/dL) 36.3 34.9 RDW (11.5 - 14.5 %) 13.1 13.2 Plt Count (150 - 400 x10 3/uL) 186 204 MPV (7.0 - 9.0 fL) 9.9 H 10.1 H Neut % (Auto) (56.0 - 77.0 %) 81.1 H 87.9 H Lymph % (Auto) (14.0 - 32.0 %) 10.2 L 8.0 L [place] % (Auto) (4.8 - 9.0 %) 8.2 3.7 L Eos % (Auto) (0.3 - 3.7 %) 0.0 L 0.0 L Baso % (Auto) (0.0 - 2.0 %) 0.1 0.2 Neut # (Auto) (2.0 - 7.6 x10 3/uL) 9.59 H 14.79 H Lymph # (Auto) (1.0 - 3.8 x10 3/uL) 1.21 1.34 [place] # (Auto) (0.1 - 0.8 x10 3/uL) 0.97 H 0.63 Eos # (Auto) (0.0 - 0.2 x10 3/uL) 0.00 0.00 Baso # (Auto) (0.0 - 0.2 x10 3/uL) 0.01 0.03 Abs Immat Gran (auto) (0.00 - 0.03 0.05 H 0.04 H x10 3/uL) Add Manual Diff NO NO Immature Gran % (0.0 - 2.0 %) 0.4 0.2 Nucleated RBC % (0 - 0 %) 0.0 0.0 Nucleated RBCs # (Man) (0.0 - 0.1 0.00 0.00 x10 3/uL) Poikilocytosis 2+ 07/28 07/28 07/28 1556 1534 1509 Coagulation Activated Coag Time (74 - 137 SEC) 323 H 342 H 209 H Treatments Procedures Treatments Procedures: PVI ablation Lab: Chemistry last 24 hrs: 07/29 07/28 4633 2104 Chemistry Sodium (134 - 147 mEq/L) 138 139 Potassium (3.4 - 5.0 mEq/L) 4.7 4.3 Chloride (100 - 108 mEq/L) 111 H 112 H BUN (7 - 18 mg/dL) 13 12 Creatinine (0.6 - 1.3 mg/dL) 1.1 1.2 Glucose (70 - 110 mg/dL) 142 H 163 H Hematology last 24 hrs: 07/29 07/28 0333 2104 Hematology WBC (4.5 - 11.0 x10 3/uL) 11.8 H 16.8 H Hgb (12.5 - 16.9 g/dL) 16.7 17.7 H Hct (37.5 - 50.7 %) 46.0 50.7 Plt Count (150 - 400 x10 3/uL) 186 204 Neut % (Auto) (56.0 - 77.0 %) 81.1 H 87.9 H Discharge Instructions PCP PCP: PCP: Olegario Butler MD )( Discharge to: Home/Self Care Discharge Instructions Additional Discharge Routines: Attending Follow-Up )( Diet: Cardiac )( Activity: As Tolerated Follow-up Appointments Attending Physician: Attending Physician: Olegario Butler MD Attending physician follow up timeframe: In 1-2 weeks at 1003 at 1444 RPT #:[id number] [facility] 2022-07-29 04:09:00 [id number] [place] [address] PATIENT NAME: JAE GUERRIER ADMIT DATE: 07/28/22 ACCOUNT NO: [id number] [place] [facility]GE: 71 REPORT TYPE: eELECTROCARDIOGRAM REPORT SEX: M ADMITTING PHYSICIAN:Olegaroi Butler MD ATTENDING PHYSICIAN:Olegario Butler MD Order: [id number] Test Reason : rhythm change Test Date/Time Stamp: WedJul 29 2022 04:09:34 Blood Pressure : / mmHG Vent. Rate : 068 BPM Atrial Rate : 000 BPM P-R Int : 000 ms QRS Dur : 102 ms QT Int : 398 ms P-R-T Axes : 000 -06 -75 degrees QTc Int : 423 ms Atrial fibrillation Nonspecific T wave abnormality Abnormal ECG When compared with ECG of 28-JUL-2022 20:58, Vent. rate has decreased BY [address] no longer depressed in Anterolateral leads Confirmed by DEVIN MALDONADO ([id number]) on 07/29/2022 5:40:13 PM Referred By: Olegario Butler Confirmed by:DEVIN MALDONADO at 1740 PATIENT NAME: JAE GUERRIER [facility] 2022-07-29 04:09:00 [id number] [place] [address] PATIENT NAME: JAE GUERRIER ADMIT DATE: 07/28/22 ACCOUNT NO: [id number] [place] [facility] [place]GE: 71 REPORT TYPE: eELECTROCARDIOGRAM REPORT SEX: M ADMITTING PHYSICIAN:Olegario Butler MD ATTENDING PHYSICIAN:Olegario Butler MD Order: [id number] Test Reason : rhythm change Test Date/Time Stamp: WedJul 29 2022 04:09:34 Blood Pressure : / mmHG Vent. Rate : 068 BPM Atrial Rate : 000 BPM P-R Int : 000 ms QRS Dur : 102 ms QT Int : 398 ms P-R-T Axes : 000 -06 -75 degrees QTc Int : 423 ms Atrial fibrillation Nonspecific T wave abnormality Abnormal ECG When compared with ECG of 28-JUL-2022 20:58, Vent. rate has decreased BY [address] no longer depressed in Anterolateral leads Confirmed by DEVIN MALDONADO ([id number]) on 08/01/2022 8:41:01 AM Referred By: Olegario Butler Confirmed by:DEVIN MALDONADO at 0841 PATIENT NAME: JEA GUERRIER [facility] 2022-07-28 21:11:00 [facility] ([facility]) Critical Care Consult Note REPORT#:[id number] REPORT STATUS: Signed DATE:07/28/22 TIME: 2110 PATIENT: JAE GUERRIER UNIT #: [id number] ROOM/BED: [place] [address] : 51 AGE: 71 SEX: M ATTEND: Olegario Butler MD ADM AUTHOR: Darline Lee MD * ALL edits or amendments must be made on the electronic/computer document * History of Present Illness HPI Chief complaint: Dizziness and nausea HPI: This is a 71 years old active male with medical history significant for recent atrial fibrillation who was transferred to CVICU post PVI ablation by . There was a question about the success of the ablation. In the CVICU the patient developed multiple arrhythmias where he was changing between atrial fibrillation with RVR to SVT to short runs ventricular tachycardia. The patient was supposed to be started on Cardizem drip. I discussed his care with Dr. Butler and sent him a recent EKG, so we decided to place the patient on amiodarone and Cardizem drip after he received both medications boluses. History - Adult longitudinal Smoking status for patients 13 years old or older: Never Smoker Allergies: Coded Allergies: No Known Allergies (07/27/22) Review of Systems ROS Additional notes: 12 point Review of Systems was performed to the extent possible including discussion with the nursing staff and review of vital signs and all data. All systems negative other than pertinent negative/positive findings mentioned in the interval history section. Objective Physical Exam VS/I O: Last Documented: Result Date Time Pulse Ox 94 07/29 1100 B/P 136/61 07/29 1100 B/P Mean 88 07/29 1100 Pulse 102 07/29 1100 Resp 25 07/29 1100 O2 Delivery Room air 07/29 0400 Temp 36.9 07/29 0400 24 hour I O ending at 0700: 07/30 0700 07/29 1900 Intake Total Output Total 250 Balance -250 Number Voids 1 Output, Urine 250 Patient Weight and BMI Weight (kg): 85.800 BMI: 25.7 Medications: Active Meds + DC'd Last 24 Hrs Lisinopril (ZESTRIL) 20 MG DAILY PO Rivaroxaban (XARELTO 20MG) 20 MG DAILY PO (CAN) Sotalol HCl (BETAPACE) 80 MG BID PO (CAN) Diltiazem HCl (dilTIAZem HCL) 125 MG ASDIR IV (CKD) Dextrose/Water (DEXTROSE 5% WATER) 100 ML Promethazine HCl (Promethazine 25 mg/1 mL Inj) 12.5 MG ONCE ONE IV (DC) Sodium Chloride (SODIUM CHLORIDE 0.9%) 50 ML Metoprolol Succinate (TOPROL XL) 0 .STK-MED ONE PO (DC) Digoxin (LANOXIN) 500 MCG ONCE ONE IV (DC) Metoprolol Succinate (TOPROL XL) 25 MG ONCE ONE PO (DC) Fentanyl Citrate (SUBLIMAZE) 100 MCG PACU Q10MIN PRN PRN IV (DC) Fentanyl Citrate (SUBLIMAZE) 50 MCG PACU Q10MIN PRN PRN IV (DC) Hydralazine HCl (APRESOLINE) 5 MG PACU Q10MIN PRN PRN IV (DC) Hydrocodone Bitart/Acetaminophen (NORCO 5/325) 1 TAB PACU ONCE PO (DC) Hydromorphone HCl (DILAUDID) 1 MG PACU Q10MIN PRN PRN IV (DC) Hydromorphone HCl (DILAUDID) 0.5 MG PACU Q5MIN PRN PRN IV (DC) Insulin Human Lispro (HUMALOG) 0 PACU ONCE PRN SUBQ (DC) Labetalol HCl (LABETALOL HCL) 5 MG PACU Q10MIN PRN PRN IV (DC) Meperidine HCl (MEPERIDINE HCL/PF) 12.5 MG PACU ONCE PRN IV (DC) Morphine Sulfate (morphine SULFATE) 2 MG PACU Q10MIN PRN PRN IV (DC) Ondansetron HCl (ZOFRAN) 4 MG PACU ONCE PRN IV (DC) Ropivacaine (NAROPIN 0.5% 150 MG/30mL) 150 MG ASDIR PRN LOCAL (DC) Tramadol HCl (ULTRAM) 50 MG PACU ONCE PO (DC) Ondansetron HCl (ZOFRAN) 0 .STK-MED ONE .ROUTE (DC) Amiodarone HCl (AMIODARONE HCL) 450 MG ASDIR IV (DC) Dextrose/Water (D5%W NON-DEHP) 250 ML Amiodarone HCl (NEXTERONE 150MG/D5W 100ML) 100 ML .STK-MED ONE IV (DC) Fentanyl Citrate (SUBLIMAZE) 0 .STK-MED ONE .ROUTE (DC) Heparin Sodium (HEPARIN SODIUM) 0 .STK-MED ONE .ROUTE (DC) Fentanyl Citrate (SUBLIMAZE) 0 .STK-MED ONE .ROUTE (DC) Cefazolin Sodium (KEFZOL OR ANCEF) 0 .STK-MED ONE .ROUTE (DC) Dexamethasone Sodium Phosphate (DECADRON) 0 .STK-MED ONE .ROUTE (DC) Esmolol HCl (BREVIBLOC) 0 .STK-MED ONE IV (DC) Fentanyl Citrate (SUBLIMAZE) 0 .STK-MED ONE .ROUTE (DC) Heparin Sodium (HEPARIN SODIUM) 0 .STK-MED ONE .ROUTE (DC) Lidocaine HCl (XYLOCAINE) 0 .STK-MED ONE .ROUTE (DC) Ondansetron HCl (ZOFRAN) 0 .STK-MED ONE .ROUTE (DC) Propofol (DIPRIVAN 200MG/20ML INJECTION) 20 ML .STK-MED ONE IV (DC) Rocuronium Norcatur (ZEMURON) 0 .STK-MED ONE IV (DC) Atropine Sulfate (ATROPINE SULFATE 0.1MG/ML SYR) 0.5 MG ASDIR PRN IV Sodium Chloride (SODIUM CHLORIDE 0.9%) 500 ML ASDIR PRN IV Bupivacaine HCl (MARCAINE 0.5%) 0 .STK-MED ONE .ROUTE (DC) Heparin Sodium/Dextrose (HEPARIN 25,000 UNITS/D5W 500ML) 500 ML .STK-MED ONE IV (DC) Heparin Sodium/Sodium Chloride (HEPARIN 2,000 UNITS/NS 1,000mL) 5,000 ML .STK-MED ONE IV (DC) Lidocaine HCl (XYLOCAINE) 0 .STK-MED ONE .ROUTE (DC) Results Findings/Data: Laboratory Tests 07/28 07/28 07/28 07/28 07/28 1656 1641 1619 1556 1534 Coagulation Activated Coag Time (74 - 137 SEC) 293 H 293 H 311 H 323 H 342 H 07/28 1509 Coagulation Activated Coag Time (74 - 137 SEC) 209 H Free Text Obj Notes Free Text Obj Notes: GEN: Patient is calm and in no distress. NECK: Supple, no JVD or thrush. No adenopathy. LUNGS: Clear lungs, no wheezes, no rales or crackles. CV: Irregularly irregular, tachycardic, no murmurs are heard. No S3 or rubs. GI: Abdomen is soft, not tender. Bowel sounds are present. EXT/Musc: No edema. No clubbing or cyanosis noted. Skin is warm. NEURO: Awake and oriented x 3. No focal findings. Diagnosis, Assessment Plan Free text DxA P: A-fib with RVR V. tach? Status post ablation Continue supplemental oxygen and titrate FiO2 to keep saturation more than 90%. Judicious pain control Cardiology is consulted and following Obtain an EKG Cardizem bolus and drip Amiodarone bolus and drip Anticoagulation per cardiology Monitor kidney function and trend creatinine Monitor and replete electrolytes Strict I O's Cardiac diet with bowel regimen VTE prophylaxis, SCD Discussed with ICU team and cardiology Critical care time 49 minutes at 2022 RPT #:[id number] [facility] 2022-07-28 20:58:00 [id number] [address] PATIENT NAME: JAE GUERRIER ADMIT DATE: 07/27/22 ACCOUNT NO: [id number] ROOM NO: AGE: 71 REPORT TYPE: ELECTROCARDIOGRAM SEX: M ADMITTING PHYSICIAN: ATTENDING PHYSICIAN:Olegario Butler MD Order: [id number] Test Reason : rhythm change Test Date/Time Stamp: WedJul 28 2022 20:58:19 Blood Pressure : / mmHG Vent. Rate : 130 BPM Atrial Rate : 000 BPM P-R Int : 000 ms QRS Dur : 090 ms QT Int : 338 ms P-R-T Axes : 000 001 194 degrees QTc Int : 497 ms Atrial fibrillation with rapid ventricular response with premature ventricular or aberrantly conducted complexes Septal infarct (cited on or before 28-JUL-2022) ST and T wave abnormality, consider inferolateral ischemia Abnormal ECG When compared with ECG of 28-JUL-2022 17:53, Significant changes have occurred Confirmed by DEVIN MALDONADO ([id number]) on 07/29/2022 5:39:23 PM Referred By: Olegario Butler Confirmed by:DEVIN MALDONADO at 1391 PATIENT NAME: JAE GUERRIER [facility] 2022-07-28 20:58:00 [id number] [address] PATIENT NAME: JAE GUERRIER ADMIT DATE: 07/27/22 ACCOUNT NO: [id number] ROOM NO: AGE: 71 REPORT TYPE: ELECTROCARDIOGRAM SEX: M ADMITTING PHYSICIAN: ATTENDING PHYSICIAN:Olegario Butler MD Order: [id number] Test Reason : rhythm change Test Date/Time Stamp: WedJul 28 2022 20:58:19 Blood Pressure : / mmHG Vent. Rate : 130 BPM Atrial Rate : 000 BPM P-R Int : 000 ms QRS Dur : 090 ms QT Int : 338 ms P-R-T Axes : 000 001 194 degrees QTc Int : 497 ms Atrial fibrillation with rapid ventricular response with premature ventricular or aberrantly conducted complexes Septal infarct (cited on or before 28-JUL-2022) ST and T wave abnormality, consider inferolateral ischemia Abnormal ECG When compared with ECG of 28-JUL-2022 17:53, Significant changes have occurred Confirmed by DEVIN MALDONADO ([id number]) on 08/01/2022 8:41:09 AM Referred By: Olegario Butler Confirmed by:DEVIN MALDONADO at 0841 PATIENT NAME: JAE GUERRIER [facility] 2022-07-28 17:53:00 [id number] [address] PATIENT NAME: JAE GUERRIER ADMIT DATE: 07/28/22 ACCOUNT NO: [id number] ROOM NO: [id number] AGE: 71 REPORT TYPE: eELECTROCARDIOGRAM REPORT SEX: M ADMITTING PHYSICIAN:Olegario Butler MD ATTENDING PHYSICIAN:Olegario Butler MD Order: [id number] Test Reason : S/P PVI Test Date/Time Stamp: WedJul 28 2022 17:53:00 Blood Pressure : / mmHG Vent. Rate : 121 BPM Atrial Rate : 138 BPM P-R Int : 000 ms QRS Dur : 094 ms QT Int : 364 ms P-R-T Axes : 000 003 -39 degrees QTc Int : 516 ms Atrial fibrillation with rapid ventricular response with premature ventricular or aberrantly conducted complexes Septal infarct , age undetermined Abnormal ECG Confirmed by JAGUAR TRUJILLO ([id number]) on 07/29/2022 11:52:08 AM Referred By: Olegario Butler Confirmed by:JAGUAR TRUJILLO at 1152 PATIENT NAME: JAE GUERRIER [facility] 2022-07-28 17:53:00 [phone] [facility] [place] [address] PATIENT NAME: JAE GUERRIER ADMIT DATE: 07/28/22 ACCOUNT NO: [id number] [place] [facility] [place] 71 REPORT TYPE: eELECTROCARDIOGRAM REPORT SEX: M ADMITTING PHYSICIAN:Olegario Butler MD ATTENDING PHYSICIAN:Olegario Butler MD Order: [id number] Test Reason : S/P PVI Test Date/Time Stamp: WedJul 28 2022 17:53:00 Blood Pressure : / mmHG Vent. Rate : 121 BPM Atrial Rate : 138 BPM P-R Int : 000 ms QRS Dur : 094 ms QT Int : 364 ms P-R-T Axes : 000 003 -39 degrees QTc Int : 516 ms Atrial fibrillation with rapid ventricular response with premature ventricular or aberrantly conducted complexes Septal infarct , age undetermined Abnormal ECG Reconfirmed by DEVIN MALDONADO ([id number]) on 07/29/2022 5:38:58 PM Referred By: Olegario Butler Confirmed by:DEVIN MALDONADO at 9243 PATIENT NAME: JAE GUERRIER [facility]
== END 2023-10-04 12:06 | disposition home or self-care (01) ==
LOC: ER 09:32
PROC: 0HQLXZZ Repair Left Lower Leg Skin, External Approach (ICD-10-PCS; principal; 2023-10-04)
DX: S81.812A Laceration without foreign body, left lower leg, initial encounter (principal)
CPT/HCPCS: 73590; 96372; 99284; 12005; J2001